=== PATIENT | female | born 1960 | race Caucasian/White ===

== ENCOUNTER 2017-04-20 14:25 | Emergency (ER) | payer MEDICAID ==
[~2017-04-20] VITALS: Ht 162.6 cm; Wt 71.0 kg
[~2017-04-20 14:25] MED LIST: ONDA4TAB12 PO
[2017-04-20] MEDS ORDERED: guaiFENesin ER 600mg tablet PO STA (15:24)
[2017-04-20] MEDS ORDERED: albuterol 2.5 MG/3 ML nebule NEB ONE (15:25)
[2017-04-20] MEDS ORDERED: benzonatate 100mg capsule PO ONE (15:25)
[2017-04-20] MEDS ORDERED: aspirin 325mg tablet PO ONE (16:25)
[2017-04-20] MEDS ORDERED: BENZ-38 PO (16:32)
[2017-04-20] MEDS ORDERED: GUAI600T45 PO (16:32)
[2017-04-20] MEDS ORDERED: ALBU8.5H8 INH (16:32)
[2017-04-20 16:41] VITALS: BP 128/65
== END 2017-04-20 16:43 | disposition home or self-care (01) ==
LOC: ER 14:26
DX: J20.9 Acute bronchitis, unspecified (principal); Z88.0 Allergy status to penicillin
CPT/HCPCS: 36415; 71046; 84484; 93005; 94640; 94760; 99285

== ENCOUNTER 2022-11-30 19:12 | Inpatient (IN) | payer MEDICAID ==
[~2022-11-30] VITALS: Ht 162.6 cm; Wt 64.1 kg
[~2022-11-30 19:12] MED LIST changes: +ALBU8.5H17 INH; +GUAI600T45 PO
[2022-11-30 20:03] LABS: URINE HCG NEGATIVE (NEG)
[2022-11-30 20:07] LABS: BILIRUBIN,URINE NEGATIVE (Neg); COLOR,URINE STRAW (Yellow); GLUCOSE, URINE NEGATIVE (Neg); KETONES,URINE NEGATIVE (Neg); LEUKOCYTE ESTERASE ,URINE SMALL (Neg); NITRITES, URINE NEGATIVE (Neg); OCCULT BLOOD,URINE NEGATIVE (Neg); PROTEIN,URINE NEGATIVE (Neg); UROBILINOGEN,URINE 0.2 E.U/dL (0.2-1.0)
[2022-11-30 20:11] LABS: BASOPHILS # (AUTO) 0.1 X10'3 (0-0.2); BASOPHILS % (AUTO) 0.8 % (0-1); EOSINOPHILS # (AUTO) 0.1 X10'3 (0-0.9); EOSINOPHILS % (AUTO) 0.8 % (0-6); LYMPHOCYTES # (AUTO) 2.2 X10'3 (1.1-4.8); LYMPHOCYTES % (AUTO) 22.7 % (21-51); MEAN CORPUSCULAR HEMOGLOBIN 32.8 PG (27.0-31.0); MEAN CORPUSCULAR HGB CONC 34.3 g/dL (33.0-36.5); MEAN CORPUSCULAR VOLUME 95.7 FL (78-98); MEAN PLATELET VOLUME 8.3 FL (7.4-10.4); MONOCYTES # (AUTO) 0.5 X10'3 (0-0.9); MONOCYTES % (AUTO) 4.7 % (2-12); NEUTROPHILS # (AUTO) 6.8 X10'3 (1.8-7.7); PLATELET COUNT 248 X10'3 (140-440); RED BLOOD COUNT 4.28 X10'6 (4.20-5.60); RED CELL DISTRIBUTION WIDTH 13.1 % (11.5-14.5); WHITE BLOOD COUNT 9.6 X10'3 (4.5-11.0)
[2022-11-30 20:19] LABS: UA COLLECTION TYPE CLN CATCH MIDSTREAM
[2022-11-30 20:21] LABS: BACTERIA,URINE FEW /HPF (Neg); MUCUS STRANDS FEW /LPF (Neg); RBC,URINE 0-2 /HPF (0-2); SQUAMOUS EPITHELIAL CELL,UR FEW /LPF (FEW)
[2022-11-30 20:22] LABS: CLARITY,URINE SLIGHTLY CLOUDY (Clear)
[2022-11-30 20:25] LABS: ALANINE AMINOTRANSFERASE 20 U/L (12-78); ALBUMIN 4.1 G/DL (3.4-5.0); ALBUMIN/GLOBULIN RATIO 1.2 (1.1-1.5); ALKALINE PHOSPHATASE 83 IU/L (46-116); ANION GAP 8 (8-16); ASPARTATE AMINO TRANSFERASE 51 U/L (10-37); BILIRUBIN,TOTAL 0.8 MG/DL (0.1-1.0); BLOOD UREA NITROGEN 10 MG/DL (7-18); BUN/CREATININE RATIO 10.1 (10.0-20.0); CALCIUM 9.1 MG/DL (8.5-10.1); CHLORIDE 103 MMOL/L (99-107); CREATININE 0.99 MG/DL (0.40-0.90); GLUCOSE 98 MG/DL (70-104); LIPASE 151 U/L (73-393); POTASSIUM 3.6 MMOL/L (3.5-5.1); SODIUM 140 MMOL/L (135-145); TOTAL PROTEIN 7.5 G/DL (6.4-8.2); eCRCL 50 ML/MIN; eGFR 57 ML/MIN
[2022-11-30] MEDS ORDERED: ibuprofen tablet 400 MG TABLET PO ONE (22:25)
[2022-11-30] MEDS ORDERED: ibuprofen 200mg tablet PO ONE (22:30)
[2022-11-30] MEDS ORDERED: CefTRIAXone/D5W-Rocephin 1gm 50 ML IV ONE (23:40)
[2022-12-01] VITALS (26 sets, daily range): BP systolic 103–161; BP diastolic 53–96; PULSE 57–91; RESP 12–18; TEMP 97.6–98.7; O2SAT 90–99
[2022-12-01] MEDS ORDERED: ondansetron/PF 4mg/2ml inj IV ONE (00:15)
[2022-12-01] MEDS ORDERED: potassium Cl 20 mEq SR tablet PO PRN ×2 (00:15)
[2022-12-01] MEDS ORDERED: magnesium 2GM in 50ml NS 50 ML IV PRN (00:15)
[2022-12-01] MEDS ORDERED: magnesium Cl slow-release 64mg tablet PO PRN (00:15)
[2022-12-01] MEDS: normal saline 1000ml 1,000 ML IV SCH ×3 (00:15→20:15)
[2022-12-01] MEDS ORDERED: metroNIDAZOLE 500mg tablet PO ONE (00:15)
[2022-12-01] MEDS ORDERED: magnesium 4gm in 100ml NS 100 ML IV PRN (00:15)
[2022-12-01] MEDS ORDERED: potassium Cl 40MEQ/1/2NS 520ml 520 ML IV PRN (00:15)
[2022-12-01] MEDS ORDERED: levoFLOXACIN-Levaquin 500mg/D5 100 ML IV ONE (00:15)
[2022-12-01] MEDS ORDERED: LEVO-65 PO (00:21)
[2022-12-01] MEDS ORDERED: METR-159 PO (00:21)
[2022-12-01] MEDS: morphine 2 MG/ML inj. syringe IV PRN ×2 (01:40→14:53)
--- NOTE | 2022-12-01 07:06 | NUR ---
Received patient to room 4011B. Patient is alert and oriented in no apparent acute distress and reports that pain is "tolerable" at this time. Patient oriented to room and call light. Call light within reach, bed low and locked.
[2022-12-01] MEDS: K and/or MAG REPLACEMENT MC SCH ×2 (08:00→20:00)
[2022-12-01] MEDS: metroNIDAZOLE-Flagyl 500mg/NS 100 ML IV SCH ×2 (08:42→16:05)
[2022-12-01 08:58] LABS: MAGNESIUM 2.3 MG/DL (1.5-2.4)
[2022-12-01 09:38] LABS: BASOPHILS % (AUTO) 0.6 % (0-1); EOSINOPHILS # (AUTO) 0.1 X10'3 (0-0.9); EOSINOPHILS % (AUTO) 0.9 % (0-6); HEMATOCRIT 39.7 % (35.0-45.0); HEMOGLOBIN 13.4 g/dl (12.0-16.0); LYMPHOCYTES # (AUTO) 1.4 X10'3 (1.1-4.8); LYMPHOCYTES % (AUTO) 19.8 % (21-51); MEAN CORPUSCULAR HEMOGLOBIN 32.6 PG (27.0-31.0); MEAN CORPUSCULAR HGB CONC 33.8 g/dL (33.0-36.5); MEAN CORPUSCULAR VOLUME 96.3 FL (78-98); MEAN PLATELET VOLUME 8.5 FL (7.4-10.4); MONOCYTES # (AUTO) 0.4 X10'3 (0-0.9); MONOCYTES % (AUTO) 5.5 % (2-12); NEUTROPHILS # (AUTO) 5.4 X10'3 (1.8-7.7); NEUTROPHILS % (AUTO) 73.2 % (42-75); PLATELET COUNT 233 X10'3 (140-440); RED BLOOD COUNT 4.13 X10'6 (4.20-5.60); WHITE BLOOD COUNT 7.3 X10'3 (4.5-11.0)
[2022-12-01 09:48] LABS: PROTHROMBIN TIME 10.5 SECONDS (9.0-12.0)
[2022-12-01 10:09] LABS: ALANINE AMINOTRANSFERASE 17 U/L (12-78); ALBUMIN 3.5 G/DL (3.4-5.0); ALBUMIN/GLOBULIN RATIO 1.1 (1.1-1.5); ALKALINE PHOSPHATASE 73 IU/L (46-116); ANION GAP 10 (8-16); ASPARTATE AMINO TRANSFERASE 47 U/L (10-37); BILIRUBIN,TOTAL 0.7 MG/DL (0.1-1.0); BLOOD UREA NITROGEN 10 MG/DL (7-18); BUN/CREATININE RATIO 11.8 (10.0-20.0); CALCIUM 8.8 MG/DL (8.5-10.1); CHLORIDE 106 MMOL/L (99-107); CREATININE 0.85 MG/DL (0.40-0.90); GLUCOSE 106 MG/DL (70-104); POTASSIUM 3.9 MMOL/L (3.5-5.1); SODIUM 140 MMOL/L (135-145); TOTAL CARBON DIOXIDE 24.5 MMOL/L (24-32); TOTAL PROTEIN 6.7 G/DL (6.4-8.2); eCRCL 59 ML/MIN; eGFR 68 ML/MIN
[2022-12-01] MEDS ORDERED: QUET-1 PO (13:33)
[2022-12-01] MEDS ORDERED: IBUP-1986 PO (13:33)
--- NOTE | 2022-12-01 16:06 | NUR ---
Patient down to OR
[2022-12-01] MEDS ORDERED: ondansetron/PF 4mg/2ml inj IV PRN (16:45)
[2022-12-01] MEDS ORDERED: meperidine/PF 25mg/ml syringe IV PRN ×2 (16:45)
[2022-12-01] MEDS ORDERED: ringers solution, lacted 1,000 ML IV SCH (16:45)
[2022-12-01] MEDS ORDERED: proCHLORperazine 10 MG/2 ml inj IV PRN (16:45)
[2022-12-01] MEDS ORDERED: morphine 4 MG/ML inj SYRINge IV PRN (16:45)
[2022-12-01] MEDS ORDERED: morphine 2 MG/ML inj. syringe IV PRN (16:45)
[2022-12-01] MEDS ORDERED: BUPIVAcaine/PF 2.5mg/ml (0.25%) 10ml vial ONE (16:57)
[2022-12-01] MEDS ORDERED: dexamethasone sod phosphate 10mg/ml inj ONE (17:00)
[2022-12-01] MEDS ORDERED: glycopyrrolate 0.2mg/ml inj ONE (17:00)
[2022-12-01] MEDS ORDERED: sevoflurane 250ml liquid IH ONE (17:00)
[2022-12-01] MEDS ORDERED: metroNIDAZOLE 500mg/NS 100ml premix IV ONE (17:00)
[2022-12-01] MEDS ORDERED: neostigmine methylsulfate 1 MG/ML 10ml vial ONE (17:00)
[2022-12-01] MEDS ORDERED: midazolam 1 mg/ML 2ml injection ONE (17:10)
[2022-12-01] MEDS ORDERED: fentaNYL/PF 50MCG/1 ML 2ML syringe ONE (17:10)
[2022-12-01] MEDS ORDERED: BUPIVAcaine/PF 2.5 mg/ml (0.25%) 30ml vial IJ ONE (17:33)
[2022-12-01] MEDS ORDERED: LIDOcaine 2% (20mg/ml) 5ml vial ONE (17:39)
[2022-12-01] MEDS ORDERED: propofol inj 20 ML IV ONE (17:39)
[2022-12-01] MEDS ORDERED: rocuronium 10mg/ml inj IV ONE (17:40)
[2022-12-01] MEDS ORDERED: ondansetron/PF 4mg/2ml inj ONE (17:40)
[2022-12-01] MEDS ORDERED: labetalol 20mg/4ml (5mg/ml) syringe IV ONE (17:43)
[2022-12-01] MEDS ORDERED: ketorolac trometh. 30mg/ml inj. ONE (17:45)
--- NOTE | 2022-12-01 18:05 | NUR ---
Received from OR via HOSPITAL BED TO RR 5, accompanied by Anesthesiologist SUNG and report given by Anesthesiolgist. PT PRESENTS ON 6L VIA MASK WITH SPO2 AT 99%. PT IS COMPLAINING OF PAIN 01/18 TO ABD. WILL GIVE PAIN MEDICATIONS. 3 ABD LAP SITES WITH DERMABOND CDI. LR RUNNING AT 100ML/HR THRU PIV IN RIGHT HAND. WILL CONTINUE TO ASSESS. Addendum: 12/01/22 at 1816 by Jacquie Qiu RN VSAlexsander AND MD ALMARAZ IN ROOM. NO NEW ORDERS GIVEN.
[2022-12-01] MEDS: meperidine/PF 25mg/ml syringe IV PRN ×2 (18:10→18:38)
--- NOTE | 2022-12-01 18:23 | NUR ---
Problems reprioritized. Patient report given, questions answered & plan of care reviewed with ELPIDIO Pardo.
--- NOTE | 2022-12-01 18:30 | NUR ---
Patient in room ORTHO 4011. I have received report from Luci LEE and had the opportunity to ask questions and assume patient care. Addendum: 12/02/22 at 0121 by Edvin Bailey LVN Pt was off unit for procedure at this time
--- NOTE | 2022-12-01 20:05 | NUR ---
PATIENT STABLE FOR TRANSFER PER MD ORDER. REPORT GIVEN TO ELPIDIO CANCHOLA AND ALL QUESTIONS, COMMENTS AND CONCERNS WERE ANSWERED AT THIS TIME. PT'S VSS WITH MINIMAL PAIN. NAUSEA HAS SUBSIDED WELL. 3 ABD LAP SITES WITH DERMABOND, CDI. PATIENT HOOKED UP TO POST OP VITALS IN ROOM 4011B AND HAS CALL LIGHT WITHIN REACH, BLL. PRIMARY NURSE AWARE OF TRANSFER.
--- NOTE | 2022-12-01 20:05 | NUR ---
Received report from Recovery room, Jacquie LEE. Pt arrived to room 4011b at 2004, at bedside
[2022-12-02] VITALS (8 sets, daily range): BP systolic 97–132; BP diastolic 47–64; PULSE 57–83; RESP 12–15; TEMP 97.6–98.3; O2SAT 95–98
[2022-12-02] MEDS ORDERED: levoFLOXACIN-Levaquin 500mg/D5 100 ML IV SCH
[2022-12-02] MEDS: metroNIDAZOLE-Flagyl 500mg/NS 100 ML IV SCH ×2 (00:22→07:29)
[2022-12-02] MEDS: ondansetron/PF 4mg/2ml inj IV PRN ×2 (02:31→12:41)
[2022-12-02] MEDS: meperidine/PF 25mg/ml syringe IV PRN (04:43)
--- NOTE | 2022-12-02 05:07 | NUR ---
agree with assessments of ELPIDIO Pardo. pt has dermabond on abd incisions. has been nauseated. zofran helped. took some chicken broth to help with nausea. noted pt will need diet order in am.
[2022-12-02] MEDS: normal saline 1000ml 1,000 ML IV SCH (06:15)
--- NOTE | 2022-12-02 06:22 | NUR ---
Problems reprioritized. Patient report given, questions answered & plan of care reviewed with Luci LEE.
--- NOTE | 2022-12-02 06:22 | NUR ---
Patient in room ORTHO 4011. I have received report from ELPIDIO Pardo and had the opportunity to ask questions and assume patient care.
[2022-12-02 07:34] LABS: BASOPHILS % (AUTO) 0.1 % (0-1); EOSINOPHILS % (AUTO) 0 % (0-6); HEMATOCRIT 35.4 % (35.0-45.0); HEMOGLOBIN 12.3 g/dl (12.0-16.0); LYMPHOCYTES # (AUTO) 0.6 X10'3 (1.1-4.8); MEAN CORPUSCULAR HEMOGLOBIN 33.1 PG (27.0-31.0); MEAN CORPUSCULAR HGB CONC 34.6 g/dL (33.0-36.5); MEAN CORPUSCULAR VOLUME 95.4 FL (78-98); MEAN PLATELET VOLUME 8.7 FL (7.4-10.4); MONOCYTES # (AUTO) 0.3 X10'3 (0-0.9); MONOCYTES % (AUTO) 3.2 % (2-12); NEUTROPHILS % (AUTO) 89.7 % (42-75); PLATELET COUNT 233 X10'3 (140-440); RED BLOOD COUNT 3.71 X10'6 (4.20-5.60); RED CELL DISTRIBUTION WIDTH 12.9 % (11.5-14.5); WHITE BLOOD COUNT 8.9 X10'3 (4.5-11.0)
[2022-12-02] MEDS: K and/or MAG REPLACEMENT MC SCH (08:00)
[2022-12-02 08:03] LABS: ALBUMIN 3.4 G/DL (3.4-5.0); ANION GAP 13 (8-16); BLOOD UREA NITROGEN 12 MG/DL (7-18); BUN/CREATININE RATIO 15.6 (10.0-20.0); CALCIUM 8.1 MG/DL (8.5-10.1); CHLORIDE 102 MMOL/L (99-107); CREATININE 0.77 MG/DL (0.40-0.90); GLUCOSE 106 MG/DL (70-104); MAGNESIUM 1.7 MG/DL (1.5-2.4); POTASSIUM 4.1 MMOL/L (3.5-5.1); SODIUM 138 MMOL/L (135-145); TOTAL CARBON DIOXIDE 23.3 MMOL/L (24-32); eCRCL 65 ML/MIN; eGFR 76 ML/MIN
--- NOTE | 2022-12-02 12:00 | NUR ---
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
--- NOTE | 2022-12-02 12:21 | NUR ---
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
--- NOTE | 2022-12-02 14:36 | NUR ---
Resource RN Analisa discussed with patient discharge instructions and medications while this RN was on lunch break. Patient was dc'd with all personal belongings and alert and oriented in no apparent acute distress, escorted out by x1 staff and .
--- NOTE | 2022-12-02 18:00 | NUR ---
Charting by Shana BUCHANAN reviewed by Mary Ann Jensen RN
== END 2022-12-02 14:30 | disposition home or self-care (01) | DRG 234 ==
LOC: ER 19:13 → ED HOLD 12-01 00:21 → ORTHO 4S 12-01 06:48
PROVIDERS: ADMIT Internal Medicine; ATTEND Family Medicine
PROC: 0DTJ4ZZ Resection of Appendix, Percutaneous Endoscopic Approach (ICD-10-PCS; principal; 2022-12-01 17:00)
DX: K35.80 Unspecified acute appendicitis (principal); J45.909 Unspecified asthma, uncomplicated; Z88.0 Allergy status to penicillin; Z79.899 Other long term (current) drug therapy; Z98.51 Tubal ligation status
CPT/HCPCS: 36415; 71045; 74176; 80048; 80053; 81001; 81025; 82948; 83690; 83735; 84145; 85025; 85610; 87081; 87088; 93005; 99285; A4215; A4618; A7000; G0378; J0696; J0780; J1100; J1885; J1956; J2175; J2250; J2270; J2405; J2704; J2710; J3010; J3490; J7030; J7120